=== PATIENT | male | born 1970 | race Caucasian/White ===

== ENCOUNTER 2022-03-11 08:51 | Day surgery (SDC) | payer MEDICARE, OTHER ==
[~2022-03-11] VITALS: Ht 188 cm; Wt 186.7 kg
[2022-03-11] MEDS ORDERED: NEURONTIN800 MG/TAB PO (09:16)
[2022-03-11] MEDS ORDERED: COZAAR 50MG50 MG/TAB PO (09:16)
[2022-03-11] MEDS ORDERED: HCTZ 25MG TAB25 MG PO (09:16)
[2022-03-11] MEDS ORDERED: VITAMIN D (09:17)
[2022-03-11] MEDS ORDERED: GLUCOPHAGE1000 MG PO (09:17)
[2022-03-11 09:56] VITALS: BP 138/84; PULSE 90; TEMP 97.7
[2022-03-11 11:00] VITALS: BP 137/73; PULSE 83; TEMP 98.2
--- NOTE | 2022-03-11 11:00 | NUR ---
PATIENT ARRIVES TO ROOM 4 VIA CART. ASSIST X 2 TO CHAIR. VITAL SIGNS WNL. FAMILY AT BEDSIDE. PATIENT REQUESTS COKE AND A MUFFIN. WILL CONTINUE TO MONITOR.
[2022-03-11 11:15] VITALS: BP 149/95; PULSE 76
--- NOTE | 2022-03-11 11:15 | NUR ---
PATIENT IS ALERT AND ORIENTED. VITAL SIGNS WNL. DOCTOR AT BEDSIDE. IV REMOVED. WILL CONTINUE TO MONITOR.
[2022-03-11 11:30] VITALS: BP 145/76; PULSE 76
--- NOTE | 2022-03-11 11:30 | NUR ---
PATIENT IS READY FOR DISCHARGE. LAST SET OF VITALS WNL. DISCHARGE INSTRUCTIONS REVIEWED. WILL CONTINUE TO MONITOR.
== END 2022-03-11 11:36 | disposition home or self-care (01) ==
LOC: SDCO 08:51
DX: D12.5 Benign neoplasm of sigmoid colon (principal); K63.5 Polyp of colon; K57.30 Diverticulosis of large intestine without perforation or abscess without bleeding; K92.1 Melena; K59.00 Constipation, unspecified; E66.01 Morbid (severe) obesity due to excess calories; K64.4 Residual hemorrhoidal skin tags; K62.89 Other specified diseases of anus and rectum; D37.5 Neoplasm of uncertain behavior of rectum; Z68.43 Body mass index [BMI] 50.0-59.9, adult
CPT/HCPCS: J2704; J7030

== ENCOUNTER → 2022-10-14 | Outpatient (CLI) | payer MEDICARE, OTHER ==
[~2022-10-14] MED LIST: COZAAR 50MG50 MG/TAB PO; GLUCOPHAGE1000 MG PO; HCTZ 25MG TAB25 MG PO; NEURONTIN800 MG/TAB PO; VITAMIN D
== END ==
LOC: COL.RAD 11:33
DX: M17.11 Unilateral primary osteoarthritis, right knee (principal)

== ENCOUNTER 2024-02-04 18:40 | Emergency (ER) | payer MEDICARE, OTHER ==
[~2024-02-04] VITALS: Ht 185.4 cm; Wt 196.8 kg
[~2024-02-04 18:40] MED LIST changes: +BENTYL 10MG10 MG/CAP PO; +FLONASEALLERGY NS; +NORVASC 5MG5 MG/TAB PO
[2024-02-04 18:45] VITALS: TEMP 98.6
[2024-02-04 19:12] LABS: BASO # 0.1 K/mm3 (0.0-0.2); BASO % 0.5 % (0.0-2.0); EOS # 0.1 K/mm3 (0.0-0.7); EOS % 0.6 % (0.0-4.0); GRAN # 5.7 K/mm3 (1.4-6.5); GRAN % 51.5 % (42.2-75.2); HEMATOCRIT 44.8 % (42.0-52.0); HEMOGLOBIN 14.5 g/dl (13.5-18.0); MEAN CELL VOLUME 82 fl (80.0-100.0); MEAN CORPUSCULAR HEMOGLOBIN 27 pg (27-31); MEAN CORPUSCULAR HGB CONC 32 g/dl (33.0-37.0); MONO # 1.2 K/mm3 (0.1-0.6); MONO % 11.1 % (1.7-9.3); PLATELET COUNT 335 K/mm3 (130-400); RED BLOOD COUNT 5.48 M/mm3 (4.20-5.60); REDCELL DISTRIBUTION WIDTH-CV 13.5 % (11.5-14.5)
[2024-02-04] MEDS ORDERED: Ketorolac 30 MG/ML VIAL IV ONE (19:30)
[2024-02-04 19:31] LABS: ALANINE AMINOTRANSFERASE 8 U/L (0-55); ALBUMIN 3.3 g/dL (3.5-5.0); ALKALINE PHOSPHATASE 105 U/L (40-150); ANION GAP 11 mmol/L (7-16); AST,SGOT 18 U/L (5-34); BILIRUBIN,TOTAL 0.3 mg/dL (0.2-1.2); BLOOD UREA NITROGEN 12 mg/dL (8-26); C-REACTIVE PROTEIN 4.05 mg/dL (0.00-0.50); CALCIUM 8.6 mg/dL (8.4-10.2); CHLORIDE 105 mEq/L (98-107); CREATINE KINASE 112 U/L (30-200); CREATININE, serum 0.79 mg/dL (0.72-1.25); GLUCOSE 158 mg/dL (70-99); POTASSIUM 3.8 mEq/L (3.5-4.5); SODIUM 138 mEq/L (136-145); TOTAL PROTEIN 7.1 g/dl (6.2-8.1)
[2024-02-04 19:37] LABS: TROPONIN-I < 0.010 ng/mL (0.00-0.033)
[2024-02-04 21:51] VITALS: BP 123/69; PULSE 78
== END 2024-02-04 21:52 | disposition home or self-care (01) ==
LOC: COL.ER 18:40
PROVIDERS: Emergency Medicine
DX: R07.89 Other chest pain (principal)

== ENCOUNTER 2024-02-10 12:00 | Day surgery (SDC) | payer MEDICARE, OTHER ==
[~2024-02-10] VITALS: Ht 182.9 cm; Wt 196.1 kg
[2024-02-10] VITALS (7 sets, daily range): BP systolic 112–145; BP diastolic 71–95; PULSE 75–91; TEMP 98.9
[2024-02-10] MEDS ORDERED: 1/2 NS 1,000 ML IV SCH (12:15)
[2024-02-10 13:11] LABS: HEMATOCRIT 44.8 % (42.0-52.0); HEMOGLOBIN 14.7 g/dl (13.5-18.0); MEAN CELL VOLUME 81 fl (80.0-100.0); MEAN CORPUSCULAR HEMOGLOBIN 27 pg (27-31); MEAN CORPUSCULAR HGB CONC 33 g/dl (33.0-37.0); MEAN PLATELET VOLUME 9.1 fl (7.4-10.4); PLATELET COUNT 324 K/mm3 (130-400); RED BLOOD COUNT 5.53 M/mm3 (4.20-5.60); REDCELL DISTRIBUTION WIDTH-CV 13.8 % (11.5-14.5)
[2024-02-10 13:17] LABS: INR 1.2 (0.8-3.0); PROTHROMBIN TIME 12.7 SECONDS (9.7-12.8)
[2024-02-10 13:20] LABS: PARTIAL THROMBOPLASTIN TIME 33.2 SECONDS (26.0-37.0)
[2024-02-10] MEDS ORDERED: TRULICITY0.75 MG/0. SQ (13:20)
[2024-02-10] MEDS ORDERED: ATIVAN 1MG T1 MG/TAB PO (13:21)
[2024-02-10] MEDS ORDERED: FERROUSAL325 MG PO (13:21)
[2024-02-10] MEDS ORDERED: AMOXICILLIN 8751 TAB PO (13:21)
[2024-02-10] MEDS ORDERED: FLOXIN OTIC DROP5 ML OT (13:22)
[2024-02-10] MEDS ORDERED: PREDNISONE20 MG PO (13:22)
[2024-02-10] MEDS ORDERED: TESSALON PERLE200 MG PO (13:23)
[2024-02-10] MEDS ORDERED: PROAIR HFA0.09 MG/AC IH (13:23)
[2024-02-10 13:26] LABS: CALCIUM 8.8 mg/dL (8.4-10.2); CREATININE, serum 0.8 mg/dL (0.72-1.25); POTASSIUM 4.4 mEq/L (3.5-4.5)
--- NOTE | 2024-02-10 14:19 | NUR ---
SEE MERGE FOR PROCEDURE DOCUMENTATION
[2024-02-10] MEDS ORDERED: Heparin 1,000 UNITS/ML 10 ML Multi-Dose VIAL IV SCH (14:33)
[2024-02-10] MEDS ORDERED: Heparin 1,000 UNITS/ML 10 ML Multi-Dose VIAL IA SCH (14:37)
[2024-02-10] MEDS ORDERED: Ondansetron 4 MG/2 ML VIAL IV SCH (14:39)
[2024-02-10] MEDS ORDERED: Verapamil 2.5 MG/ML 2 ML VIAL IA SCH (14:40)
[2024-02-10] MEDS ORDERED: Nitroglycerin 100 MCG/ML (Cath Lab) 10 ML VIAL IA SCH (14:41)
[2024-02-10] MEDS ORDERED: Midazolam 2 MG/2 ML VIAL IV SCH (14:43)
[2024-02-10] MEDS ORDERED: fentaNYL 50 MCG/ML 2 ML VIAL IV SCH (14:43)
[2024-02-10] MEDS ORDERED: Iohexol 350 - 100 ML VIAL INCOR ONE (14:49)
[2024-02-10] MEDS ORDERED: IMDUR 60MG60 MG/TAB PO (15:03)
--- NOTE | 2024-02-10 15:09 | NUR ---
PATIENT ALERT AND ORIENTED, DENIES PAIN. REPORTS NAUSEA HAS IMPROVED. PATIENT TRANSFERRED TO BED VIA SLIDE AND POSITIONED FOR COMFORT. PATIENT TRANSPORTED TO [facility], FAMILY BROUGHT TO BEDSIDE. VITAL SIGNS TAKEN ON ARRIVAL, VSS. PATIENT PROVIDED CALL LIGHT, BED TO LOWEST POSITION, X3 BEDRAILS IN PLACE. PLAN OF CARE REVIEWED, QUESTIONS INVITED. TRANSFER OF CARE REPORT TO FANNIE GOMES.
--- NOTE | 2024-02-10 17:09 | NUR ---
PT TOLERATED RECOVERY PERIOD WELL. VS REMAINED WITHIN NORMAL LIMITS. IV DISCONTINUED AND PT ASSISTED TO MAIN LOBBY VIA WHEELCHAIR. PT FREE FROM ACUTE CONCERNS AND COMPLAINTS AT TIME OF DISCHARGE AND VERBALIZED UNDERSTANDING OF DISCHARGE INSTRUCTIONS. RIGHT RADIAL DRESSING REMAINED CLEAN DRY AND INTACT AND RIGHT RADIAL SITE REMAINED FREE FROM SIGNS OF BLEEDING AND HEMATOMA. PT REPORTED 0/10 PAIN AT TIME OF DISCHARGE.
== END 2024-02-10 17:14 | disposition home or self-care (01) ==
LOC: COL.CAR 12:00
PROVIDERS: Internal Medicine Cardiovascular Disease
DX: I25.10 Atherosclerotic heart disease of native coronary artery without angina pectoris (principal); E66.2 Morbid (severe) obesity with alveolar hypoventilation; Z68.43 Body mass index [BMI] 50.0-59.9, adult; Z85.47 Personal history of malignant neoplasm of testis
CPT/HCPCS: J1644; J2250; J2405; J3010; Q9967